=== PATIENT | male | born 1940 | race Caucasian/White ===

== ENCOUNTER 2018-06-13 10:24 | Emergency (ER) | payer OTHER, BC ==
[2018-06-13 10:36] VITALS: BP 155/72
[2018-06-13] MEDS ORDERED: PROPARACAINE 0.5% 15 ML OPHT DROP ONE (10:45)
[2018-06-13] MEDS ORDERED: FLUORESCEIN SODIUM 1 MG STRIP OP ONE (10:45)
[2018-06-13] MEDS ORDERED: PROPARACAINE 0.5% 15 ML OPHT DROP OP ONE (10:53)
--- NOTE | 2018-06-13 11:04 | EDPHY ---
H & P Time Seen by Provider: 06/13/18 10:53 HPI/ROS: CHIEF COMPLAINT: Left eye redness HISTORY OF PRESENT ILLNESS: Yesterday accidentally poked his left eye with with a stick, complains today of lateral left eye redness on the sclera, was concerned it might be an infection. Does not have double vision or visual loss or eye pain or foreign body sensation. REVIEW OF SYSTEMS: Otherwise negative PAST MEDICAL HISTORY: Colectomy and diverticulitis Social history: Current nonsmoker General Appearance: Alert, no distress. Visual acuity: noted from nursing notes. Lids and Lashes: No edema, no stye, no erythema. Conjunctivae: Not injected. Sclera: Left-sided subconjunctival hemorrhage, no icterus. Pupils: Equal and round, normally reactive. Corneas: Left examined with fluoroscein, 2 mm left lateral uptake seen with slitlamp, not over the pupil.Negative [place] test with fluoroscein. No foreign body on surface of cornea. Anterior chamber: normal, no hyphema or hypopyon. External: No proptosis, no periorbital swelling or redness or tenderness. EOMI. Emergency Department course/MDM: Patient presents with subconjunctival hemorrhage in small corneal abrasion after trauma from yesterday. Does not appear to have globe rupture or foreign body or full-thickness corneal laceration or corneal ulcer. Does not have evidence of infection. Antibiotic eyedrops, explain subconjunctival hemorrhage healing, ophthalmology referral. Smoking Status: Former smoker Constitutional: Initial Vital Signs Temperature (C) 36.4 C 06/13/18 10:34 Heart Rate 61 06/13/18 10:34 Respiratory Rate 16 06/13/18 10:34 Blood Pressure 155/72 H 06/13/18 10:34 O2 Sat (%) 97 06/13/18 10:34 O2 Delivery Mode Room Air Allergies/Adverse Reactions: meperidine HCl [From Demerol] Allergy (Verified 06/13/18 10:34) Home Medications: Medication Instructions Recorded Aspirin [Aspir 81] 81 mg PO 06/25/13 oxyCODONE/APAP 5/325 [Percocet 1 - 2 tab PO Q6-8PRN PRN #20 tab 06/25/13 5/325 (RX)] Gentamicin 0.3% [Gentak 0.3% Opht 1 drop Q4 3 Days #1 bottle 06/13/18 Drops (RX)] MDM/Departure - MDM Medications Given: Discontinued Medications Proparacaine HCl (Alcaine 0.5%) 1 drops OP EDNOW ONE Stop: 06/13/18 10:54 Last Admin: 06/13/18 10:56 Dose: Not Given - Depart Disposition: Home, Routine, Self-Care Clinical Impression: Subconjunctival hemorrhage of left eye Corneal abrasion Qualifiers: Encounter type: initial encounter Laterality: left Qualified Code(s): S05.02XA - Injury of conjunctiva and corneal abrasion without foreign body, left eye, initial encounter Condition: Good Instructions: Subconjunctival Hemorrhage (ED), Corneal Abrasion (ED) Additional Instructions: Return or call Ophthalmology immediately if you develop any decrease in vision in left eye. Prescriptions: Gentamicin 0.3% [Gentak 0.3% Opht Drops (RX)] 1 drop Q4 3 Days #1 bottle Referrals: Rosanna Rodrigues MD [Primary Care Provider] - As per Instructions En Crain MD [Medical Doctor] - 2-3 days, if not improved
== END 2018-06-13 11:15 | disposition home or self-care (01) ==
DX: S05.02XA Injury of conjunctiva and corneal abrasion without foreign body, left eye, initial encounter (principal); W22.8XXA Striking against or struck by other objects, initial encounter; Y92.9 Unspecified place or not applicable; Y93.9 Activity, unspecified; Y99.9 Unspecified external cause status; Z87.891 Personal history of nicotine dependence